=== PATIENT | male | born 1975 | race Caucasian/White ===

== ENCOUNTER 2018-09-04 06:36 | Observation (INO) | payer OTHER ==
[~2018-09-04] VITALS: Ht 182.9 cm; Wt 97.3 kg
[2018-09-04] VITALS (12 sets, daily range): BP systolic 130–169; BP diastolic 81–102
--- NOTE | ~2018-09-04 | EKG ---
[place] [address] [address] [facility] [place] [address] ELECTROCARDIOGRAM REPORT Name: SHERRY HUTCHINSON Room #: REG CLI Yamilex#: [id number] Admission: 09/04/18 Attend Phys: Huy Lockhart MD, Discharge: Date of : 77 Report #: [id number] THIS REPORT FOR: //name// [facility] Test Date: 2018-09-04 Test Time: 06:58:53 Pat Name: SHERRY HUTCHINSON Department: Room: Gender: Customer Support Specialist: Adam GONZÁLES : 1975 Requested By: Huy Lockhart Order Number: [id number] MD: Rui Lyon Measurements Intervals [place] Rate: 76 P: 54 DE: 131 QRS: 81 QRSD: 102 T: 17 QT: 391 QTc: 440 Interpretive Statements Sinus rhythm No significant abnormality No previous ECG available for comparison Electronically Signed On 09-04-2018 8:41:26 VACATION SALES ADVISOR by Rui Lyon [email or web address] <ELECTRONICALLY SIGNED> By: Rui Lyon MD, [facility] 09/04/18 0841 [id number] Rui Lyon MD, FACC /EPI
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
--- NOTE | ~2018-09-04 | EKG ---
[address] [address] ELECTROCARDIOGRAM REPORT Name: SHERRY HUTCHINSON Room #: 210-P [facility] M.R.#: [id number] Admission: 09/04/18 Attend Phys: Huy Lockhart MD, Discharge: Date of : 77 Report #: [id number] THIS REPORT FOR: //name// [facility] [place] [place] Test Date: 2018-09-05 Test Time: 07:14:32 Pat Name: SHERRY HUTCHINSON Department: Room: 210 P Gender: M Thread Cutter Tender: ERNESTO : 1975 Requested By: Whit Freed Order Number: [id number] MD: Rui Lyon Measurements Intervals [place] Rate: 79 P: 61 LA: 124 QRS: 78 QRSD: 97 T: 26 QT: 377 QTc: 433 Interpretive Statements Sinus rhythm Normal tracing Compared to ECG 09/04/2018 06:58:53 No significant change was found Electronically Signed On 09-05-2018 8:43:13 SUSPENDER CUTTER by Rui Lyon [email or web address] <ELECTRONICALLY SIGNED> By: Rui Lyon MD, [facility] 09/05/18 0843 0714 3 Rui Lyon MD, FACC /EPI
[2018-09-04] MEDS ORDERED: LIVALO4 MG PO (07:30)
[2018-09-04] MEDS ORDERED: ATENOLOL 50MG T50 M1 PO (07:31)
[2018-09-04] MEDS ORDERED: ASA5UEC PO (07:31)
[2018-09-04 07:38] LABS: HEMATOCRIT 46.4 % (42.0-52.0); MCH 34.7 pg (26.0-34.0); MCHC 34.5 g/dL (28.0-37.0); MCV 100.8 fL (80.0-100.0); RBC 4.6 mil/uL (4.50-6.00); RDW 13.8 % (10.5-14.5); WBC 6.9 thou/uL (4.0-11.0)
[2018-09-04 07:44] LABS: CALCIUM 8.8 mg/dL (8.5-10.1); CREATININE 1.3 mg/dL (0.7-1.3); POTASSIUM 4.2 mmol/L (3.5-5.1)
[2018-09-05 04:52] LABS: HEMOGLOBIN 15.7 gm/dL (14.0-18.0); MCH 34.4 pg (26.0-34.0); MCHC 34.1 g/dL (28.0-37.0); MCV 100.8 fL (80.0-100.0); RBC 4.56 mil/uL (4.50-6.00); RDW 14.1 % (10.5-14.5); WBC 10.3 thou/uL (4.0-11.0)
[2018-09-05 04:54] LABS: ALBUMIN 3.4 g/dL (3.4-5.0); CALCIUM 8.6 mg/dL (8.5-10.1); CREATININE 1.2 mg/dL (0.7-1.3); POTASSIUM 3.8 mmol/L (3.5-5.1)
[2018-09-05 05:56] VITALS: BP 113/79
[2018-09-05 08:00] VITALS: BP 137/75
[2018-09-05] MEDS ORDERED: ZETIA10 MG PO (08:17)
[2018-09-05] MEDS ORDERED: ASPIRIN325 PO (08:17)
[2018-09-05] MEDS ORDERED: CRESTOR40 MG PO (08:17)
[2018-09-05] MEDS ORDERED: COZAAR 25 MG TA25 M1 PO (08:17)
[2018-09-05] MEDS ORDERED: EFFIENT10 MG PO (08:17)
[2018-09-05 08:53] VITALS: BP 137/75
== END 2018-09-05 11:45 | disposition home or self-care (01) ==
LOC: CATH 06:36 → 2N 09:33 → CATH 11:51 → ENTRNSPT 09-05 11:17 → EDTRNSPTSTS 09-05 11:18 → 2N 09-05 11:45
PROVIDERS: Internal Medicine Cardiovascular Disease; Nurse Practitioner Adult Health
DX: I25.10 Atherosclerotic heart disease of native coronary artery without angina pectoris (principal); I10 Essential (primary) hypertension; E78.00 Pure hypercholesterolemia, unspecified; Z79.899 Other long term (current) drug therapy; Z23 Encounter for immunization

== ENCOUNTER → 2019-05-21 | Outpatient (CLI) | payer OTHER ==
[~2019-05-21] MED LIST: ASA5UEC PO; ASPIRIN325 PO; ATENOLOL 50MG T50 M1 PO; COZAAR 25 MG TA25 M1 PO; CRESTOR40 MG PO; EFFIENT10 MG PO; LIVALO4 MG PO; ZETIA10 MG PO
== END ==
LOC: CAT 14:47
DX: Z13.6 Encounter for screening for cardiovascular disorders (principal); E78.00 Pure hypercholesterolemia, unspecified; Z82.49 Family history of ischemic heart disease and other diseases of the circulatory system

== ENCOUNTER → 2020-10-27 | Outpatient (CLI) | payer OTHER | LOC: SJCVCIMAG 09:30 | PROVIDERS: ATTEND Internal Medicine Cardiovascular Disease | DX: I10 Essential (primary) hypertension (principal); E78.5 Hyperlipidemia, unspecified; I25.10 Atherosclerotic heart disease of native coronary artery without angina pectoris; Z95.5 Presence of coronary angioplasty implant and graft ==